=== PATIENT | male | born 1980 | race Caucasian/White ===

== ENCOUNTER 2022-09-23 17:48 | Emergency (ER) | payer SELFPAY ==
[2022-09-23] MEDS ORDERED: Lidocaine 2% 20 ML MDV INFILT ONE (17:49)
[2022-09-23] MEDS ORDERED: Sulfamethoxazole/Trimethoprim 800-160 MG Tab PO STA (18:53)
== END 2022-09-23 19:13 | disposition home or self-care (01) ==
LOC: FB.ED 17:48
DX: S61.213A Laceration without foreign body of left middle finger without damage to nail, initial encounter (principal); I10 Essential (primary) hypertension; Z88.1 Allergy status to other antibiotic agents; Z88.0 Allergy status to penicillin; Z72.0 Tobacco use; W27.0XXA Contact with workbench tool, initial encounter
CPT/HCPCS: 12001; 73140; 99283; A9270

== ENCOUNTER 2023-02-08 06:40 | Day surgery (SDC) | payer SELFPAY ==
[~2023-02-08 06:40] MED LIST: Lactated Ringers 1,000 ML IV SCH; Sodium Chloride 0.9% 10 ML Syringe FLUSH PRN
[2023-02-08] MEDS ORDERED: Ketamine 500 mg/10 ML MDV IV ONE (06:41)
[2023-02-08] MEDS ORDERED: Lidocaine 2% 5 ML SDV IV ONE (06:41)
[2023-02-08] MEDS ORDERED: Propofol 200 MG/20 ML SDV IV ONE (06:41)
[2023-02-08] MEDS ORDERED: Midazolam 1 MG/ML 2 ML SDV IV ONE ×2 (06:41)
[2023-02-08] MEDS ORDERED: Simethicone Drops 40 MG/0.6 ML 30 ML Bottle ONE (08:05)
== END 2023-02-08 09:12 | disposition home or self-care (01) ==
LOC: FB.SDS 06:40
PROVIDERS: ATTEND Surgery
DX: K31.7 Polyp of stomach and duodenum (principal); K29.50 Unspecified chronic gastritis without bleeding; K31.89 Other diseases of stomach and duodenum; K21.9 Gastro-esophageal reflux disease without esophagitis; I10 Essential (primary) hypertension; F17.210 Nicotine dependence, cigarettes, uncomplicated; Z88.0 Allergy status to penicillin; Z88.5 Allergy status to narcotic agent; Z88.8 Allergy status to other drugs, medicaments and biological substances; Z79.899 Other long term (current) drug therapy
CPT/HCPCS: 00731; 43239; 45378; 88305; 88342; A9270; J2250; J2704; J3490; J7120